=== PATIENT | male | born 1955 | race Two or more races ===

== ENCOUNTER 2018-09-10 22:12 | Emergency (ER) | payer SELFPAY | END 2018-09-11 00:57 | disposition left against medical advice (07) | LOC: ER 22:12 | DX: Z53.21 Procedure and treatment not carried out due to patient leaving prior to being seen by health care provider (principal) ==

== ENCOUNTER 2018-10-19 00:26 | Inpatient (IN) | payer SELFPAY ==
[~2018-10-19] VITALS: Ht 185.4 cm; Wt 66.2 kg
[2018-10-19 05:20] LABS: CHLORIDE 104 mEq/L (98-107)
[2018-10-19 05:35] LABS: BASOPHILS % 1.1 % (0.0-2.0); EOSINOPHILS % 2.4 % (0.0-5.0); HEMATOCRIT. 40.9 % (42.0-52.0); HEMOGLOBIN. 13.9 g/dL (14.0-18.0); LYMPHOCYTES % 37.6 % (20.0-50.0); MEAN CORPUSCULAR HEMOGLOBIN 29.1 pg (28.0-32.0); MEAN CORPUSCULAR VOLUME 85.7 fL (80.0-94.0); MEAN PLATELET VOLUME 8.2 fl (7.4-10.4); MONOCYTES % 13.8 % (2.0-8.0); NEUTROPHILS % 45.1 % (40.0-76.0); PLATELET 154 x1000/uL (130-400); RED BLOOD CELL COUNT 4.77 mill/uL (4.7-6.1); RED CELL DISTRIBUTION WIDTH 14.4 % (11.6-14.6)
[2018-10-19 08:00] VITALS: BP 152/72
[2018-10-19 08:30] VITALS: BP 152/72
[2018-10-19] MEDS ORDERED: ENOXAPARIN 40MG/0.4ML SYR SUBCUT SCH (10:00)
[2018-10-19] MEDS ORDERED: ONDANSETRON HCL 4MG/2ML INJ IV PRN (10:00)
[2018-10-19] MEDS ORDERED: GUAIFENESIN 200MG/10ML SUGAR FREE UDC PO PRN (10:00)
[2018-10-19] MEDS ORDERED: ACETAMINOPHEN 325MG TABLET PO PRN (10:00)
[2018-10-19] MEDS ORDERED: CLONIDINE 0.1MG TABLET PO PRN (10:00)
[2018-10-19] MEDS ORDERED: DIPHENHYDRAMINE 50MG/ML VIAL IV PRN (10:00)
[2018-10-19] MEDS ORDERED: IPRATROPIUM/ALBUTEROL 0.5-3(2.5)MG/3ML NEB HHN PRN (10:00)
[2018-10-19] MEDS ORDERED: MAGNESIUM/ALUMINUM HYDROXIDE/SIMETHICONE 30ML UDC PO PRN (10:00)
[2018-10-19 12:00] VITALS: BP 150/87
[2018-10-19 12:58] LABS: *BARBITURATES SCREEN URINE NEGATIVE (NEGATIVE); CANNABINOID URINE SCREEN NEGATIVE (NEGATIVE)
[2018-10-19 12:59] LABS: *AMPHETAMINES SCREEN URINE NEGATIVE (NEGATIVE); *COCAINE SCREEN URINE NEGATIVE (NEGATIVE); METHADONE URINE SCREEN NEGATIVE (NEGATIVE); OPIATES URINE SCREEN NEGATIVE (NEGATIVE); PHENCYCLIDINE URINE SCREEN NEGATIVE (NEGATIVE)
[2018-10-19 13:03] LABS: *BENZODIAZEPINES SCREEN URINE NEGATIVE (NEGATIVE)
[2018-10-19 16:00] VITALS: BP 167/84
[2018-10-19] MEDS: SODIUM CHLORIDE 0.9% INJ 3ML FLUSH IVF SCH ×2 (17:56→21:26)
[2018-10-19 20:00] VITALS: BP 142/83
[2018-10-19] MEDS: AMLODIPINE 5MG TABLET PO SCH (21:26)
[2018-10-20] VITALS: BP_SYST 106; BP_SYST 150; BP_DIAS 57; BP_DIAS 97
[2018-10-20 04:00] VITALS: BP 147/89
[2018-10-20] MEDS: SODIUM CHLORIDE 0.9% INJ 3ML FLUSH IVF SCH (06:09)
[2018-10-20 08:00] VITALS: BP 136/86
[2018-10-20] MEDS: AMLODIPINE 5MG TABLET PO SCH (08:16)
[2018-10-20] MEDS ORDERED: REGADENOSON 0.4 MG/5 ML IV ONE (09:45)
== END 2018-10-20 11:55 | disposition left against medical advice (07) | DRG 203 ==
LOC: ER 00:26 → ENRESERV 07:37 → 5WST 08:28
PROVIDERS: ADMIT Internal Medicine; ATTEND Internal Medicine
DX: R07.89 Other chest pain (principal); F17.200 Nicotine dependence, unspecified, uncomplicated; Z53.21 Procedure and treatment not carried out due to patient leaving prior to being seen by health care provider; Z87.01 Personal history of pneumonia (recurrent); Z59.0 Homelessness
CPT/HCPCS: 36415; 71045; 80305; 83880; 84484; 93005; 93306; 96372; 99285; J1650